=== PATIENT | male | born 1975 | race Two or more races ===

== ENCOUNTER 2017-02-13 22:42 | Emergency (ER) | payer MEDICAID ==
[~2017-02-13] VITALS: Ht 180.3 cm; Wt 108.9 kg
[2017-02-13 23:06] VITALS: BP 116/78
== END 2017-02-14 02:04 | disposition home or self-care (01) ==
LOC: ER 22:42
DX: J18.9 Pneumonia, unspecified organism (principal); R51 Headache
CPT/HCPCS: 71046